=== PATIENT | male | born 1980 | race Two or more races ===

== ENCOUNTER 2025-01-14 20:32 | Inpatient (IN) | payer MEDICAID, SELFPAY ==
[2025-01-14 20:33] VITALS: BMI 50.8
[2025-01-14 20:41] VITALS: BP 149/97; PULSE 123; RESP 18; TEMP 36.8; O2SAT 97
--- NOTE | 2025-01-14 20:47 | EDNOTE_ITS ---
Nausea/Vomit./Diarrhea-RME/HPI General Chief complaint: Nausea/Vomiting/Diarrhea Stated complaint: VOMITING, INCREASE THRIST, BG 595 AT HOME Time Seen by Provider: 01/14/25 20:46 Arrival date/time: 01/14/25 20:32 RME / HPI RME / HPI Narrative: 44-year-old male patient with no significant medical history except for obesity, was brought in by family for evaluation regarding a blood sugar of 595 despite not having history of diabetes mellitus patient is been having increase thirst, urinating a lot, and vomiting since this morning. Denies any abdominal pain denies any headache denies any fever denies any other complaints. His is diabetic and check his blood sugar today. Related Data Previous Rx's ?Medication ?Instructions ?Recorded celecoxib 200 mg capsule (Celebrex) 200 mg PO BID PRN pain #60 caps 12/17/19 lisinopril 10 mg tablet 10 mg PO QDAY #30 tabs 10/19 acetaminophen 300 mg-codeine 30 mg 1 tab PO Q8H PRN pa in #12 tabs 11/24/21 tablet methocarbamol 500 mg tablet 500 mg PO TID #12 tabs benzonatate 200 mg capsule 200 mg PO TID PRN cough #30 caps 12/25/22 prednisone 50 mg tablet 50 mg PO QDAY #7 tabs Allergies Allergy/AdvReac Type Severity Reaction Status Date / Time No Known Allergies Allergy Verified 01/14/25 20:32 Review of Systems Review of Systems Narrative Review of Systems: Review of system reviewed and within normal limits except mentioned in HPI ED Exam Narrative Physical exam: VITAL SIGNS: Reviewed. GENERAL APPEARANCE: Alert and interactive, follows commands, no acute distress, HEAD AND FACE: Non-traumatic. ENT: PERRL, pink conjunctivitis, eyelid no trauma, Mucous membrane moist. NECK: Supple, nontender, no nuchal rigidity. CHEST: No tenderness, no crepitus, no paradoxical movement, no retractions. LUNGS: Clear, well ventilated, symmetric, no rales, no wheezing, no ronchi, no stridor, good breath sounds bilaterally. HEART: Regular rate, regular rhythm, no murmur, no gallops. ABDOMEN: Soft, positive bowel sounds, nondistended, no guarding, nontender, no rebound, no masses, RECTAL: Deferred. GENITAL: Deferred. NEUROLOGICAL: Gross motor function intact sensory function intact, Appropriate for age. MUSCULOSKELETAL: low back nontender, full range of motion. EXTREMITIES: Nontender, full range of motion. SKIN: Color pink, dry, no rash, no lacerations, no abrasions, no contusions. LYMPHATICS: Deferred. Course Quality Measures none Orders Category Date Time Status COVID-19 Screening Questionnaire NOW Care 01/14/25 22:54 Active Decision to Admit X1 Care 01/14/25 22:54 Active EKG (ED ONLY) *Do not use* NOW Care 01/14/25 20:52 Completed EKG (ED Only) Stat Exams 01/14/25 20:52 Draft Acetone [Beta Hydroxybutyrate] Stat Lab 01/14/25 21:50 Completed BMP [Basic Metabolic Panel] Stat Lab 01/14/25 22:53 Ordered CBC Stat Lab 01/14/25 21:50 Completed Comprehensive Metabolic Panel Stat Lab 01/14/25 21:50 Completed Hemoglobin A1C [Glycohemoglobin w (eAG)] Stat Lab 01/14/25 21:50 Completed Lactate (Lactic Acid) Stat Lab 01/14/25 22:52 Ordered Lipase Stat Lab 01/14/25 21:50 Completed Prothrombin Time with INR Stat Lab 01/14/25 21:50 Completed UA, C/S IF [Urinalysis, C/S if Indicated] Stat Lab 01/14/25 21:39 Completed VBG [Venous Blood Gas] Stat Lab 01/14/25 21:50 Completed Insulin Reg 100 Units/100 ml [Myxredlin] Med 01/14/25 22:45 Discontinued 100 unit in 100 ml IV 0.1 unit/kg/hr Insulin Regular Med 01/14/25 22:53 Once 10 unit IV X1 ONE Ondansetron Inj [Zofran Inj] Med 01/14/25 20:53 Discontinued 4 mg IVP X1 ONE Ringers Lactated 1000 ml [Lactated Ringers] 1,000 ml Med 01/14/25 20:53 Discontinued IV 999 mls/hr Ringers Lactated 1000 ml [Lactated Ringers] 1,000 ml Med 01/14/25 22:15 Active IV 999 mls/hr Vital Signs Vital signs: Vital Signs Temperature 98.2 F 01/14/25 20:41 Pulse Rate 123 H 01/14/25 20:41 Respiratory Rate 18 01/14/25 20:41 Blood Pressure 149/97 H 01/14/25 20:41 Pulse Oximetry (%) 97 01/14/25 20:41 Oxygen Delivery Method Room Air 01/14/25 20:41 Nausea/Vomiting/Diarrhea [facility] Narrative [facility] Narrative:: 44-year-old male patient with no significant medical history except for obesity, was brought in by family for evaluation regarding a blood sugar of 595 despite not having history of diabetes mellitus patient is been having increase thirst, urinating a lot, and vomiting since this morning. Denies any abdominal pain denies any headache denies any fever denies any other complaints. His is diabetic and check his blood sugar today. CBC came back unremarkable. Patient's CMP is significant for sodium 132, chloride 95, carbon dioxide less than 10 anion gap 27 blood sugar 466 hemoglobin A1c 9.1 slightly elevated AST, ALT and alkaline phos. Lipase is 70 urinalysis no UTI positive ketones. VBG came back unremarkable. pH normal EKG, as interpreted by me showed normal sinus rhythm, ventricular rate of 91 bpm, no ST segment elevation depression noted. Patient received 2 L IV fluids, IV insulin, and Zofran. Case discussed with Dr. Shaikh who told me to just give IV insulin for now and will admit patient to floor Patient data External records reviewed:: None Clinical information provided by:: patient Social determinants that could affect healthcare access:: none Patient has the following chronic illnesses:: None How is presenting disease/condition affected by chronic disease/condition?: no chronic disease Evaluation data The following diagnostics were reviewed and interpreted by me:: lab results and EKG tracing(s) Lab and/or radiology exams considered but not ordered:: None Interpretation Summary: See results [facility] Medications / Prescriptions Medications / Prescriptions considered but not ordered:: None Medication administrations:: Medication Administration History Lactated Ringer's (Lactated Ringers) 1,000 mls @ 999 mls/hr IV .Q1H1M ONE Stop: 01/14/25 23:15 Last Admin: 01/14/25 22:23 Dose: 999 mls/hr Documented By: PINOR Insulin Human Regular (Insulin Hum Regular 1 Unit/0.01 Ml (Per Unit)) 10 unit IV X1 ONE Stop: 01/14/25 22:54 Discontinued Medications Lactated Ringer's (Lactated Ringers) 1,000 mls @ 999 mls/hr IV .Q1H1M ONE Stop: 01/14/25 21:53 Last Infusion: 01/14/25 22:09 Dose: Infused Documented By: Admin: 01/14/25 21:08 Dose: 999 mls/hr Documented By: Infusion: 01/14/25 21:08 Dose: Infused Documented By: Admin: 01/14/25 21:02 Dose: 999 mls/hr Documented By: CG Insulin Human Regular (Myxredlin) 100 unit in 100 mls @ 14.288 mls/hr IV .Q7H PRN; Protocol PRN Reason: PER PROTOCOL Stop: 02/13/25 22:44 Ondansetron HCl (Ondansetron Inj 2 Mg/Ml Inj 2 Ml) 4 mg IVP X1 ONE; Protocol Stop: 01/14/25 20:54 Last Admin: 01/14/25 21:01 Dose: 4 mg Documented By: CG IV fluids 2 L, insulin IV, and Zofran Consultations Consultation(s) initiated? (list below): No Diagnosis Nausea Differential Diagnosis: food poisoning, dehydration and other (Hyperglycemia,) Most likely diagnosis given after review of the tests above:: Hyperglycemia dehydration, new diagnosis of diabetes mellitus Admission Indicated Admission indicated?: indicated Admission Request Was there a request for admission?: Yes Admission Attestation Admission request attestation: Discussed case with [Dr Shaikh] from Hospitalist service regarding admission. Discussed patients ED course, exam findings, labs, and radiology results. The Hospitalist [agrees] to accept the patient for admission. Disposition Plan Disposition Plan: Admit Discharge Plan Plan Patient Disposition: Admit Acute Care w/in Hospital Prescriptions/Referrals Prescriptions/Med Rec: No Action celecoxib [Celebrex] 200 mg capsule 200 mg PO BID PRN (Reason: pain) Qty: 60 0RF lisinopril 10 mg tablet 10 mg PO QDAY Qty: 30 0RF acetaminophen-codeine 300-30 mg tablet 1 tab PO Q8H PRN (Reason: pain) Qty: 12 0RF methocarbamol 500 mg tablet 500 mg PO TID Qty: 12 0RF benzonatate 200 mg capsule 200 mg PO TID PRN (Reason: cough) Qty: 30 0RF prednisone 50 mg tablet 50 mg PO QDAY Qty: 7 0RF Referrals: Alma Machuca PA-C [Primary Care Provider] - In 1 week Problem List Clinical Impression: Hyperglycemia, Dehydration, New onset type 2 diabetes mellitus Patient/Caregiver Discharge Instructions Print Language: Greenlandic Stand Alone Forms: Mirella Award Info., Patient Portal Info Letter
--- NOTE | 2025-01-14 20:52 | EKG_ITS ---
[facility] Test Date: 2025-01-14 Pat Name: AGUEDA HOOVER Department: Room: - Gender: Male [employer]: : 1980 Requested By: Sandra Russell Order Number: [id number] Reading MD: Sandra Russell Measurements Intervals Miles Rate: 91 P: 48 GA: 162 QRS: 56 QRSD: 87 T: 17 QT: 348 QTc: 429 Interpretive Statements SINUS RHYTHM No previous ECG available for comparison /store/S0/[id number]/ecg/[id number].pdf
[2025-01-14] MEDS: ONDANSETRON INJ 2 MG/ML INJ 2 ML 4 MG IVP (21:01)
[2025-01-14] MEDS: RINGERS LACTATED 1000 ML 1,000 ML 999 ML IV ×3 (21:02→22:23)
[2025-01-14 21:10] VITALS: BP 159/90; PULSE 100; RESP 20; TEMP 37.1; O2SAT 96
[2025-01-14 22:00] VITALS: BP 150/100; PULSE 95; RESP 17; TEMP 36.9; O2SAT 95
[2025-01-14 22:01] LABS: Collection Type, Urine Clean Catch; Squamous Epithelial Cell,Urine 0 /hpf (0-5)
[2025-01-14 22:03] LABS: Base Excess, Venous -2 (-3-3); O2 Saturation, Venous 90 % (96-97); PCO2, Venous 42 mmHg (36-56); PO2, Venous 58 mmHg (15-58); pH, Venous 7.36 (7.33-7.66)
[2025-01-14 22:10] LABS: Basophils # (Auto) 0.1 Thou/mm3 (0.0-0.2); Basophils % (Auto) 1 % (0-2.5); Eosinophils # (Auto) 0.1 Thou/mm3 (0.0-0.5); Eosinophils % (Auto) 1 % (0-10); Hematocrit 41.1 % (41.0-53.0); Hemoglobin 15.9 g/dL (13.5-16.0); Immature Granulocytes % (Auto) 1 % (0-0); Immature Granulocytes Auto 0.05 Thou/mm3 (0.00-0.00); Lymphocytes # (Auto) 4.3 Thou/mm3 (1.0-4.8); Lymphocytes % (Auto) 43 % (10-50); Mean Corpuscular HGB Conc 38.7 g/dl (31.0-37.0); Mean Corpuscular Hemoglobin 31.9 pg (25.0-35.0); Mean Corpuscular Volume 83 fL (80-100); Monocytes # (Auto) 0.6 Thou/mm3 (0.0-0.8); Monocytes % (Auto) 6 % (0-12); Neutrophils # (Auto) 4.8 Thou/mm3 (1.8-7.7); Neutrophils % (Auto) 48 % (37-80); Nucleated Red Blood Cell % 0 /100 WBC (0); Platelet Count 261 Thou/mm3 (140-440); RDW Standard Deviation 34.2 fL (35.1-43.9); Red Blood Count 4.98 Miln/mm3 (4.50-5.90); White Blood Count 9.8 Thou/mm3 (3.8-10.6)
[2025-01-14 22:14] LABS: Beta Hydroxybutyrate 0.8 mmol/L (<0.6)
[2025-01-14 22:20] LABS: INR 0.9 (0.9-1.3); Prothrombin Time 10.4 Seconds (9.0-12.2)
[2025-01-14 22:21] LABS: Bilirubin,Urine Negative (Negative); Blood,Urine Negative (Negative); Clarity,Urine Clear (Clear/Hazy); Color,Urine Colorless (Lt Yel-Yel); Culture Indicated,Urine Not Indicated; Glucose, Urine 4+ (Negative); Ketones,Urine 2+ (Negative); Leukocyte Esterase,Urine Negative (Negative); Nitrite,Urine Negative (Negative); PH,Urine 5.5 (5.0-7.0); Protein,Urine Negative (Neg - Trace); RBC,Urine 2 /hpf (0-3); Specific Gravity,Urine 1.036 (1.001-1.035); Urobilinogen,Urine Negative mg/dL (0.0-1.0); WBC,Urine 2 /hpf (0-5)
[2025-01-14 22:34] LABS: Glucose Estimated Average 214 mg/dL (80-131); Hemoglobin A1C 9.1 % Hgb (4.8-6.0)
[2025-01-14 22:40] LABS: Alanine Aminotransferase 74 U/L (10-49); Albumin, Serum 4.6 gm/dL (3.5-5.0); Albumin/Globulin Ratio 1.8 (1.2-2.2); Alkaline Phosphatase 117 U/L (46-116); Anion Gap 27 (7-16); Aspartate Amino Transferase 38 U/L (0-34); BUN/Creatinine Ratio 9 Ratio (12-20); Bilirubin,Total 0.5 mg/dL (0.3-1.2); Blood Urea Nitrogen 10 mg/dL (9-23); Calcium 9.6 mg/dL (8.3-10.6); Calcium (Corrected) 9.6 mg/dL (8.5-10.1); Chloride 95 mMol/L (98-107); Creatinine (Component) 1.1 mg/dL (0.6-1.3); Estimated Creatinine Clearance 118.1 mL/min (>60); Globulin 2.6 gm/dL (2.3-3.5); Lipase 70 U/L (12-53); Osmolality,Calculated 283 (275-295); Potassium 3.5 mMol/L (3.4-5.1); Sodium 132 mMol/L (136-145); Total Protein 7.2 gm/dL (5.7-8.2); eGFR > 60 See Note
[2025-01-14 22:42] LABS: Carbon Dioxide < 10.0 mMol/L (20.0-31.0); Glucose 466 mg/dL (74-106)
[2025-01-14 23:00] VITALS: BP 127/90; PULSE 99; RESP 12; TEMP 36.8; O2SAT 96
[2025-01-14 23:03] LABS: Lactate (Lactic Acid) 3.5 mMol/L (0.4-2.0)
[2025-01-14] MEDS: INSULIN HUM REGULAR 1 UNIT/0.01 ML (PER UNIT) 10 UNIT IV (23:24)
--- NOTE | 2025-01-14 23:57 | PD.RESHP ---
Documentation for date of: 01/14/25 [facility] History of Present Illness Chief complaint: N/V History of present illness: 44-year-old male with no relevant past medical history was admitted to the hospital on 01/14/2025 after come to the ED with chief complaints of nausea, vomiting, and high blood glucose levels. On assessment patient stated that around 2 days ago he started having increased urination and insatiable thirst and that today he started having a lot of nausea and vomiting. He also stated that his told him that he was not making sense of what he was seen today and she decided to check his blood glucose levels. Patient stated that his blood glucose was in the 500s at this time and that he had never had a diagnosis of diabetes before. He stated that he uses Ozempic for weight loss and was recently changed to Wegovy and is currently on 1 mg at this time. He stated that previous to this he had not been checked for diabetes and they just told him to check his blood glucose levels while on the medication where she stated that his blood glucose levels were normal every time. Otherwise patient had no other complaints. On assessment patient was AO x 3 and did not have any complaints of shortness of breath or chest pain. ED course: Initially came in hypertensive, tachycardic, and afebrile initial labs were relevant for high anion gap metabolic acidosis, hyperglycemia, A1c of 9.1, lactic acidosis, mildly elevated lipase, mildly elevated hydroxybutyrate, transaminitis, and UA was positive for ketones and glucose. Initial imaging included EKG which showed sinus rhythm. In the ED patient received 3 L of IV fluids, Zofran, and 10 units of regular insulin IV. PMH: As above Social Hx: Admits smoking around 3 cigarettes/week, admits drinking around 2 or 3 days a week, admitted to recently doing cocaine, denies any other illicit drugs Medications: Wegovy Allergies: NKDA Review of Systems Review of Systems Narrative Review of Systems: Constitutional: Denies sweats, Denies weight loss/gain, Denies fever, Denies chills, admits increased thirst. HEENT: Denies hearing loss, Denies ear pain, Denies postnasal drip, Denies double vision, Denies blurry vision. Respiratory: Denies shortness of breath, Denies cough, Denies wheezing. Cardiovascular: Denies chest pain, Denies palpitations, Denies sudden loss of consciousness. GI: Denies blood in stool, Denies constipation, Denies abdominal pain, Denies difficulty swallowing, Admits nausea and vomit. : Denies urinary incontinence, Denies pain while urinating, admits increased urinary frequency. MSK: Denies joint pain, Denies joint swelling, Denies numbness. Skin: Denies rash, Denies itching, Denies easy bruising. Neuro: Denies headaches, Denies dizziness, Denies seizures. Past Medical History Past Medical History NEUROLOGIC: Negative Neurological Disorders or Seizures CARDIAC: Negative Cardiac Disorders or Congestive Heart Failure RESPIRATORY: Negative Chronic Obstructive Pulmonary Disease (COPD) or Asthma GASTROINTESTINAL: Positive Gastrointestinal Disorders and Gall Bladder Disease (2018) GENITOURINARY: Negative Genitourinary Disorders or Renal Disease MUSCULOSKELETAL: Negative Musculoskeletal Disorders ENDOCRINE: Negative Endocrine Disorders, Diabetes Mellitus Type 1 or Diabetes Mellitus Type 2 HEMATOLOGIC: Negative Blood Disorders or Sickle Cell Disease OTHER HISTORY: Negative Autoimmune Disease, Blood Transfusions, Blood Transfusion Reaction or Anesthesia Reactions Family History FAMILY HISTORY: Positive Family Cardiac Disorders, Family Cancer and Family Surgery; Negative Family Psychiatric Problems, Family Respiratory Disorders, Family Gastrointestinal Problems or Family Anesthesia Reaction Social History SMOKING STATUS: Current some day smoker SUBSTANCE USE: does not use Exam Vital Signs Temp Pulse Resp BP Pulse Ox O2 Del Method 98.2 F 99 12 127/90 H 96 Room Air 01/14/25 23:00 01/14/25 23:00 01/14/25 23:00 01/14/25 23:00 01/14/25 23:00 01/14/25 23:00 Narrative Exam General: A/O x3, no acute distress Eyes: PERRL, EOMI. Anicteric, vision grossly intact. Ears: No ear pain, no ear discharge, Hearing grossly intact. Nose: No nasal discharge. Mouth/Throat: Moist mucous membranes, no redness, no lesions. Neck: Neck supple, non-tender, no cervical lymphadenopathy. Lungs: Clear YESIKA to auscultation and percussion, No accessory muscle use. Cardio: Normal S1/S2, regular rhythm, no murmurs, no JVD Abdomen: Soft, non-tender, no palpable masses, peristalsis present, no guarding or rebound. Extremities: Symmetrical, no significant deformities, no peripheral edema , non-tender, peripheral pulses presents. Skin: No rashes, no lesions, warm to touch. Neuro: No focal neurological deficits. motor and sensory intact Psych: Cooperative, appropriate mood and effect. Results: Labs 01/14/25 21:50 01/15/25 00:22 Labs: Short CBC 01/14/25 Range/Units 21:50 WBC 9.8 (3.8-10.6) Thou/mm3 Hgb 15.9 (13.5-16.0) g/dL Hct 41.1 (41.0-53.0) % Plt Count 261 (140-440) Thou/mm3 BMP 01/14/25 21:50 Sodium 132 L Potassium 3.5 Chloride 95 L Carbon Dioxide < 10.0 L* BUN 10 Creatinine 1.1 Glucose 466 H* Calcium 9.6 Liver Function 01/14/25 Range/Units 21:50 Total Bilirubin 0.5 (0.3-1.2) mg/dL AST 38 H (0-34) U/L ALT 74 H (10-49) U/L Alkaline Phosphatase 117 H (46-116) U/L Albumin 4.6 (3.5-5.0) gm/dL Urine 01/14/25 Range/Units 21:39 Urine Color Colorless A (Lt Yel-Yel) Urine Clarity Clear (Clear/Hazy) Urine pH 5.5 (5.0-7.0) Ur Specific Badin 1.036 H (1.001-1.035) Urine Protein Negative (Neg - Trace) Urine Glucose (UA) 4+ A (Negative) ABG Interpretation ABG results: 01/14/25 21:50 VBG pH 7.36 VBG pCO2 42 VBG pO2 58 VBG Base Excess -2 Quality Measures Quality Measures none Medications Home Medications and Allergies Home Medications ?Medication ?Instructions ?Recorded ?Confirmed ?Type No Known Home Medications 01/15/25 01/15/25 History Allergies Allergy/AdvReac Type Severity Reaction Status Date / Time No Known Allergies Allergy Verified 01/14/25 20:32 Visit Medications Acetaminophen (Acetaminophen 325 Mg Tablet) 650 mg PO Q6H PRN PRN Reason: pain and Fever >100.4 Stop: 02/13/25 23:43 Hydrocodone Bitart/Acetaminophen (Hydrocodone/Apap 5/325 Tablet) 1 tab PO Q4HR PRN PRN Reason: PAIN SCALE 4-10(Mod-Sev Stop: 01/19/25 23:43 Dextrose (Dextrose 50%-Water Inj 50 Ml Syringe) 25 ml IV Q15MIN PRN PRN Reason: BG 50-70 responsive npo pt Stop: 02/13/25 23:49 Dextrose (Dextrose 50%-Water Inj 50 Ml Syringe) 50 ml IV Q15MIN PRN PRN Reason: BG <50 OR BG <70 & pt unresponsive Stop: 02/13/25 23:49 Glucagon (Glucagon Inj 1 Mg Vial) 1 mg IM Q15MIN PRN PRN Reason: BG <70, and no IV access Heparin Sodium (Porcine) (Heparin Sod Inj 5000 Unit/Ml Vial) 5,000 unit SC Q8HR DAVID Stop: 01/29/25 05:59 Lactated Ringer's (Lactated Ringers) 1,000 mls @ 150 mls/hr IV .Q6H40M [facility] Stop: 01/15/25 13:04 Insulin Glargine (Insulin Glargine (Lantus) 5 Unit/0.05 Ml (Per 5 Units)) 14 unit SC [facility] Stop: 02/14/25 20:59 Insulin Human Lispro (Insulin Lispro (Admelog) 1 Unit/0.01 Ml Unit) 0 unit SC Q4H DAVID; Protocol Stop: 02/13/25 23:44 Ondansetron HCl (Ondansetron Inj 2 Mg/Ml Inj 2 Ml) 4 mg IVP Q6H PRN; Protocol PRN Reason: NAUSEA OR VOMITING Stop: 02/13/25 23:43 Discontinued Medications Lactated Ringer's (Lactated Ringers) 1,000 mls @ 999 mls/hr IV .Q1H1M ONE Stop: 01/14/25 21:53 Last Infusion: 01/14/25 22:09 Dose: Infused Lactated Ringer's (Lactated Ringers) 1,000 mls @ 999 mls/hr IV .Q1H1M ONE Stop: 01/14/25 23:15 Last Admin: 01/14/25 22:23 Dose: 999 mls/hr Insulin Human Regular (Myxredlin) 100 unit in 100 mls @ 14.288 mls/hr IV .Q7H PRN; Protocol PRN Reason: PER PROTOCOL Stop: 02/13/25 22:44 Insulin Human Regular (Insulin Hum Regular 1 Unit/0.01 Ml (Per Unit)) 10 unit IV X1 ONE Stop: 01/14/25 22:54 Last Admin: 01/14/25 23:24 Dose: 10 unit Ondansetron HCl (Ondansetron Inj 2 Mg/Ml Inj 2 Ml) 4 mg IVP X1 ONE; Protocol Stop: 01/14/25 20:54 Last Admin: 01/14/25 21:01 Dose: 4 mg Assessment & Plan Plan 44-year-old male with no relevant past medical history was admitted to the hospital on 01/14/2025 for new onset diabetes mellitus 2 and mild DKA. #Newly diagnosed DM2 #Mild DKA #High anion gap metabolic acidosis #Lactic acidosis #Hyperglycemia #Polydipsia #Polyuria #Intractable nausea and vomiting Patient came in after experiencing increased urination and thirst as well as developing nausea and vomiting today. Patient stated that he has never had a diagnosis of diabetes He was taking Wegovy and Ozempic previously for weight loss. Blood sugars at home supposedly were in the 500s. Patient's anion gap was 27 with carbon dioxide of less than 10 and beta hydroxybutyrate of 0.8. LA was 3.5 Patient received 10 units of regular insulin IV x 1 in the ED and 3 L of IV fluids A1c 9.1% Plan: IV fluids Insulin glargine 14 units at bedtime ISS every 4 hours with blood glucose checks every 4 hours Losartan 25 daily Hypoglycemia protocol ordered Repeat BMP and lactic acid ordered Lipid panel and TSH ordered for a.m. labs Carb consistent low diet. Will continue to monitor. Disposition: Patient admitted to telemetry for new onset DM2 and mild DKA. Diet: carb low GI prophylaxis: none DVT prophylaxis: heparin subcu Code: Full Case disclosed with Attending Dr. Hawa Elliott PGY1 Disclaimer: Even though this this note was dictated by speech recognition and even though it was carefully revised there may still be minor errors in food service associate due to voice recognition software. Attending Provider Attestation/Addendum I reviewed labs, imaging, EKG, home medications and prior available records. Face to face evaluation was performed by me. I have personally examined the patient and discussed assessment and plan with the IM team. I reviewed the resident note and agree with the plan with exceptions as below. New onset diabetes mellitus Borderline DKA Moderate obesity Nausea and vomiting Polyuria Polydipsia pH is WNL. Does not meet criteria for DKA however he has anion gap elevation Continue IV fluids Started long-acting insulin plus sliding scale insulin every 4 hours Monitor fingersticks every 4 hours Monitor potassium/magnesium levels and replete as needed Ordered A1c Diabetic education Outpatient weight management
[2025-01-15] VITALS (11 sets, daily range): BP systolic 137–171; BP diastolic 69–104; PULSE 69–93; RESP 14–98; TEMP 36.1–37; O2SAT 93–99; BMI 48.7
[2025-01-15 00:30] LABS: Lactate (Lactic Acid) 1.6 mMol/L (0.4-2.0)
[2025-01-15] MEDS: INSULIN LISPRO (AdmeLOG) 1 UNIT/0.01 ML UNIT SC ×8 (00:40→21:39)
[2025-01-15] MEDS: INSULIN GLARGINE (Lantus) 5 UNIT/0.05 ML (PER 5 UNITS) 14 UNIT SC (00:41)
[2025-01-15] MEDS: POTASSIUM CHLORIDE 20 mEq TABCR PO (00:42)
[2025-01-15] MEDS: RINGERS LACTATED 1000 ML 1,000 ML 150 ML IV ×2 (00:43→10:00)
[2025-01-15 00:55] LABS: Anion Gap 19 (7-16); BUN/Creatinine Ratio 10 Ratio (12-20); Blood Urea Nitrogen 8 mg/dL (9-23); Calcium 8.5 mg/dL (8.3-10.6); Carbon Dioxide 15.2 mMol/L (20.0-31.0); Chloride 102 mMol/L (98-107); Creatinine (Component) 0.8 mg/dL (0.6-1.3); Estimated Creatinine Clearance 162.4 mL/min (>60); Glucose 285 mg/dL (74-106); Osmolality,Calculated 280 (275-295); Potassium 3.5 mMol/L (3.4-5.1); Sodium 136 mMol/L (136-145); eGFR > 60 See Note
[2025-01-15 02:02] LABS: Reflex Lactate? Y
[2025-01-15 02:20] LABS: Lactic Acid, 3 HR 1.1 mMol/L (0.4-2.0)
--- NOTE | 2025-01-15 03:49 | PC.NURSE ---
Report called to floor nurse, FRANCISCO Alva
[2025-01-15] MEDS: HEPARIN SOD INJ 5000 UNIT/ML VIAL SC ×3 (05:46→21:41)
[2025-01-15 06:57] LABS: Basophils % (Auto) 1 % (0-2.5); Eosinophils # (Auto) 0.1 Thou/mm3 (0.0-0.5); Eosinophils % (Auto) 2 % (0-10); Hematocrit 37.3 % (41.0-53.0); Immature Granulocytes % (Auto) 0 % (0-0); Immature Granulocytes Auto 0.03 Thou/mm3 (0.00-0.00); Lymphocytes # (Auto) 3.8 Thou/mm3 (1.0-4.8); Lymphocytes % (Auto) 48 % (10-50); Mean Corpuscular HGB Conc 37.5 g/dl (31.0-37.0); Mean Corpuscular Hemoglobin 31.3 pg (25.0-35.0); Mean Corpuscular Volume 83 fL (80-100); Monocytes # (Auto) 0.6 Thou/mm3 (0.0-0.8); Monocytes % (Auto) 7 % (0-12); Neutrophils # (Auto) 3.3 Thou/mm3 (1.8-7.7); Neutrophils % (Auto) 42 % (37-80); Nucleated Red Blood Cell # 0.04 Thou/mm3 (0.00-0.00); Nucleated Red Blood Cell % 1 /100 WBC (0); Platelet Count 179 Thou/mm3 (140-440); RDW Standard Deviation 34.8 fL (35.1-43.9); Red Blood Count 4.47 Miln/mm3 (4.50-5.90); White Blood Count 7.8 Thou/mm3 (3.8-10.6)
[2025-01-15 07:18] LABS: Alanine Aminotransferase 54 U/L (10-49); Albumin, Serum 3.7 gm/dL (3.5-5.0); Albumin/Globulin Ratio 1.6 (1.2-2.2); Alkaline Phosphatase 91 U/L (46-116); Anion Gap 18 (7-16); Aspartate Amino Transferase 26 U/L (0-34); BUN/Creatinine Ratio 10 Ratio (12-20); Bilirubin,Total 0.6 mg/dL (0.3-1.2); Blood Urea Nitrogen 8 mg/dL (9-23); Calcium 8.6 mg/dL (8.3-10.6); Calcium (Corrected) 8.8 mg/dL (8.5-10.1); Cardiac Risk Estimate 9.3 RATIO (4.0-6.7); Chloride 101 mMol/L (98-107); Cholesterol 233 mg/dL (132-200); Creatinine (Component) 0.8 mg/dL (0.6-1.3); Estimated Creatinine Clearance 158.4 mL/min (>60); Globulin 2.3 gm/dL (2.3-3.5); Glucose 280 mg/dL (74-106); HDL Cholesterol 25 mg/dL (40-60); Magnesium 1.6 mg/dL (1.6-2.6); Osmolality,Calculated 283 (275-295); Potassium 3.4 mMol/L (3.4-5.1); Sodium 138 mMol/L (136-145); Thyroid Stimulating Hormone 2.02 uIU/mL (0.55-4.78); Triglycerides 1250 mg/dL (30-150); eGFR > 60 See Note
[2025-01-15] MEDS: POTASSIUM CHLORIDE 20 mEq TABCR 40 MEQ PO (07:28)
[2025-01-15] MEDS: Magnesium Sulfate 4 GM Ivpb 4 GM/50 ML BAG IV (07:28)
--- NOTE | 2025-01-15 07:31 | XR_ITS ---
Examination: Abdomen sonogram, Limited Date and time of exam: January 15, 2025 0940 hrs. Indications: New onset abdominal pain beginning 2 days ago clinical diagnosis pancreatitis Technique: Real-time canales scale transabdominal sonographic images of the upper abdomen obtained. Findings: Absent gallbladder Normal common bile duct 0.2 cm Pancreatic head is not enlarged 2.8 cm Liver 20.4 cm fatty infiltration no focal liver lesions Normal hepatopedal portal venous flow Patent IVC Impression: No common bile duct stones Pancreatic head is not enlarged. Moderate hepatomegaly fatty infiltration
[2025-01-15] MEDS: LOSARTAN POTASSIUM 25 MG TABLET PO (10:00)
--- NOTE | 2025-01-15 11:17 | PD.RESPRO ---
Documentation for date of: 01/15/25 Subjective Subjective Interval history: Patient examined at bedside. Has no major complaints, denies any nausea or vomiting episodes since admission. No abdominal pain. Blood sugar this morning 280. Increase glargine from 14 to 16 units at bedtime and uptitrate as needed. Anion gap metabolic acidosis slowly improving with gap now 18, bicarb 19. Patient was counseled on weight loss and sugar control outpatient. He will also be started on fenofibrate inpatient as he has severe hypertriglyceridemia 1250. Repeat CMP in the afternoon and follow-up with abdominal ultrasound to rule out possible signs of pancreatitis. Low suspicion as lipase only mildly elevated and abdominal exam benign. Replete electrolytes as needed. Exam Vital Signs Temp Pulse Resp BP Pulse Ox O2 Del Method 96.9 F 80 20 138/91 H 95 Room Air 01/15/25 08:00 01/15/25 10:00 01/15/25 08:00 01/15/25 10:00 01/15/25 08:00 01/15/25 08:00 Narrative Exam General: Middle age male, No acute distress, cooperative, obese HEENT: NCAT, No JVD noted. Mucosa dry. Pupils are equal and reactive to light bilaterally Cardiovascular: Normal S1 and S2. Regular rate and rhythm. Respiratory: Lungs are clear to auscultation bilaterally. No wheezing or crackles heard. Abdomen: Soft, nontender, not distended Skin: Warm to touch, dry, no rashes noted Musculoskeletal: No gross injuries. Able to move all 4 extremities. No pitting edema Neuro: Alert and oriented x3. No focal neuro deficits. Psych: Normal affect and mood Objective Labs 01/16/25 05:40 01/16/25 05:40 Labs: Laboratory Results - last 24 hr 01/14/25 01/14/25 01/15/25 21:39 21:50 00:22 WBC 9.8 RBC 4.98 Hgb 15.9 Hct 41.1 MCV 83 MCH 31.9 MCHC 38.7 H RDW Std Deviation 34.2 L Plt Count 261 Neut % (Auto) 48 Lymph % (Auto) 43 [place] % (Auto) 6 Eos % (Auto) 1 Baso % (Auto) 1 Neut # (Auto) 4.8 Lymph # (Auto) 4.3 [place] # (Auto) 0.6 Eos # (Auto) 0.1 Baso # (Auto) 0.1 Immature Gran # (Auto) 0.05 H Absolute Nucleated RBC 0.00 Immature Gran % 1 H Nucleated RBC % 0 PT 10.4 INR 0.9 VBG pH 7.36 VBG pCO2 42 VBG pO2 58 VBG O2 Sat ([place]) 90 L VBG Base Excess -2 Sodium 132 L 136 Potassium 3.5 3.5 Chloride 95 L 102 Carbon Dioxide < 10.0 L* 15.2 L Anion Gap 27 H 19 H BUN 10 8 L Creatinine 1.1 0.8 Estim Creat Clear Calc 118.1 162.4 eGFR > 60 > 60 BUN/Creatinine Ratio 9 L 10 L Glucose 466 H* [address] Glu mg/dL 214 H Hemoglobin A1c 9.1 H Calculated Osmolality 283 280 Lactic Acid 3.5 H 1.6 Calcium 9.6 8.5 Corrected Calcium 9.6 Magnesium Total Bilirubin 0.5 AST 38 H ALT 74 H Alkaline Phosphatase 117 H Total Protein 7.2 Albumin 4.6 Globulin 2.6 Albumin/Globulin Ratio 1.8 Triglycerides Cholesterol LDL Cholesterol, Calc HDL Cholesterol Cholesterol/HDL Ratio Lipase 70 H Beta-Hydroxybutyrate/Acetoacetate 0.8 H TSH Ur Collection Type Clean Catch Urine Color Colorless A Urine Clarity Clear Urine pH 5.5 Ur Specific [place] 1.036 H Urine Protein Negative Urine Glucose (UA) 4+ A Urine Ketones 2+ A Urine Blood Negative Urine Nitrite Negative Urine Bilirubin Negative Urine Urobilinogen (Auto) Negative Ur Leukocyte Esterase Negative Urine RBC 2 Urine WBC 2 Ur Squamous Epith Cells 0 Urine Bacteria None Ur Culture Indicated? Not Indicated 01/15/25 01/15/25 02:12 06:00 WBC 7.8 RBC 4.47 L Hgb 14.0 Hct 37.3 L MCV 83 MCH 31.3 MCHC 37.5 H RDW Std Deviation 34.8 L Plt Count 179 D Neut % (Auto) 42 Lymph % (Auto) 48 [place] % (Auto) 7 Eos % (Auto) 2 Baso % (Auto) 1 Neut # (Auto) 3.3 Lymph # (Auto) 3.8 [place] # (Auto) 0.6 Eos # (Auto) 0.1 Baso # (Auto) 0.0 Immature Gran # (Auto) 0.03 H Absolute Nucleated RBC 0.04 H Immature Gran % 0 Nucleated RBC % 1 H PT INR VBG pH VBG pCO2 VBG pO2 VBG O2 Sat ([place]) VBG Base Excess Sodium 138 Potassium 3.4 Chloride 101 Carbon Dioxide 19.0 L Anion Gap 18 H BUN 8 L Creatinine 0.8 Estim Creat Clear Calc 158.4 eGFR > 60 BUN/Creatinine Ratio 10 L Glucose [address] Glu mg/dL Hemoglobin A1c Calculated Osmolality 283 Lactic Acid 1.1 Calcium 8.6 Corrected Calcium 8.8 Magnesium 1.6 Total Bilirubin 0.6 AST 26 ALT 54 H Alkaline Phosphatase 91 D Total Protein 6.0 Albumin 3.7 D Globulin 2.3 Albumin/Globulin Ratio 1.6 Triglycerides 1250 H Cholesterol 233 H LDL Cholesterol, Calc TNP HDL Cholesterol 25 L Cholesterol/HDL Ratio 9.3 H Lipase Beta-Hydroxybutyrate/Acetoacetate TSH 2.02 Ur Collection Type Urine Color Urine Clarity Urine pH Ur Specific [place] Urine Protein Urine Glucose (UA) Urine Ketones Urine Blood Urine Nitrite Urine Bilirubin Urine Urobilinogen (Auto) Ur Leukocyte Esterase Urine RBC Urine WBC Ur Squamous Epith Cells Urine Bacteria Ur Culture Indicated? ABG Interpretation ABG results: 01/14/25 21:50 VBG pH 7.36 VBG pCO2 42 VBG pO2 58 VBG Base Excess -2 Quality Measures Quality Measures none Assessment & Plan Assessment Current Active Medications: Generic Name Dose Route Start Last Admin Trade Name Freq PRN Reason Stop Dose Admin Acetaminophen 650 mg 01/15/25 00:02 Acetaminophen 325 Mg Tablet PO 02/13/25 23:43 Q6H PRN pain 1-3 and Fever >100.4 Hydrocodone Bitart/Acetaminophen 1 tab 01/14/25 23:44 Hydrocodone/Apap 5/325 Tablet PO 01/19/25 23:43 Q4HR PRN PAIN SCALE 4-10(Mod-Sev Dextrose 25 ml 01/14/25 23:50 Dextrose 50%-Water Inj 50 Ml Syringe IV 02/13/25 23:49 Q15MIN PRN BG 50-70 responsive npo pt Dextrose 50 ml 01/14/25 23:50 Dextrose 50%-Water Inj 50 Ml Syringe IV 02/13/25 23:49 Q15MIN PRN BG <50 OR BG <70 & pt unresponsive Fenofibrate 72.5 mg 01/15/25 10:00 Fenofibrate 145 Mg Tablet (Non-Formulary) PO 02/14/25 09:59 QDAY DAVID Glucagon 1 mg 01/14/25 23:50 Glucagon Inj 1 Mg Vial IM Q15MIN PRN BG <70, and no IV access Heparin Sodium (Porcine) 5,000 unit 01/15/25 06:00 01/15/25 05:46 Heparin Sod Inj 5000 Unit/Ml Vial SC 01/29/25 05:59 5,000 unit Q8HR DAVID Administration Lactated Ringer's 1,000 mls @ 150 mls/hr 01/14/25 23:45 01/15/25 10:00 Lactated Ringers IV 01/15/25 13:04 150 mls/hr .Q6H40M DAVID Administration Magnesium Sulfate 4 gm in 50 mls @ 12.5 mls/hr 01/15/25 07:22 01/15/25 07:28 Magnesium Sulfate Ivpb IV 01/15/25 11:21 12.5 mls/hr X1 ONE Administration Insulin Glargine 16 unit 01/15/25 21:00 Insulin Glargine (Lantus) 5 Unit/0.05 Ml (Per 5 Units) SC 02/14/25 20:59 HS DAVID Insulin Human Lispro 0 unit 01/14/25 23:45 01/15/25 07:30 Insulin Lispro (Admelog) 1 Unit/0.01 Ml Unit SC 02/13/25 23:44 4 unit Q4H DAVID Administration Protocol Losartan Potassium 25 mg 01/15/25 09:00 01/15/25 10:00 Losartan Potassium 25 Mg Tablet PO 02/14/25 08:59 25 mg QDAY DAVID Administration Ondansetron HCl 4 mg 01/14/25 23:44 Ondansetron Inj 2 Mg/Ml Inj 2 Ml IVP 02/13/25 23:43 Q6H PRN NAUSEA OR VOMITING Protocol Plan 44-year-old male with history of obesity on Wegovy was admitted to the hospital on 01/14/2025 for new onset diabetes mellitus 2 and mild DKA. #Intractable nausea and vomiting-resolved #Polydipsia #Polyuria 2/2 new onset type 2 DM #High anion gap metabolic acidosis #Hyperglycemia Metabolic acidosis most likely in setting of DKA. Patient came in after experiencing increased urination and thirst, n/v. Denies any previous diagnosis of diabetes. Stated that he was started on Wegovy and Ozempic by his PCP. Initially was on Ozempic which was not tolerable. Transition to Wegovy was also not tolerable. He was on metformin for short time due to higher blood sugar reads but was never worked up for diabetes. Blood sugars at home were in the 500s. Anion gap on admission 27, bicarb less than 10, beta hydroxybutyrate of 0.8. LA was 3.5 Patient received 10 units of regular insulin IV x 1 in the ED and 3 L of IV fluids A1c 9.1% -IV fluids -Insulin glargine 16 units at bedtime -ISS every 4 hours with blood glucose checks every 4 hours -Hypoglycemia protocol ordered -repeat CMP in afternoon and night -Carb consistent low diet. -diabetic education #Mixed hyperlipidemia TAG 1250, cholesterol 233. No abdominal pain, lipase 70. Rule out pancreatitis, this is likely due to his obesity and diabetes. -start fenofibrate 48mg daily -abdominal u/s pending -follow up outpatient #Hypertension Denies being on any antihypertensive agents in the past. This should also be followed up outpatient for urine ablumin-cr ratio. Patient would benefit from MEMO inhibitor for renal protection if elevated ratio. -Will start him on losartan 25 mg daily ? Follow-up outpatient #Class III obesity (BMI >40) Patient will be possibly undergoing bariatric surgery. ?Counseled patient on diet and exercise #Lactic acidosis-resolved Disposition: telemetry for new onset DM2 and mild DKA. Diet: carb low GI prophylaxis: none DVT prophylaxis: heparin subcu Code: Full The patient's management plan was discussed with my attending physician Dr. Whelan. Beth Wilson, PGY-1 Attending Provider Attestation/Addendum I have examined the patient, reviewed labs and imaging findings, discussed the case with the resident(s), and reviewed entered orders. I agree with the plan of care as outlined in this note, with these additional summaries/recommendations: Patient seen at bedside. He currently denies nausea and vomiting. He denies abdominal pain. Patient was noted to have elevated lipase on admission and ultrasound obtained which was negative for acute pancreatitis. Patient has significantly elevated triglycerides and we will start fenofibrate. Patient also diagnosed with DKA/HHS which is mild. Anion gap continues to improve and pH within normal limits. We will continue basal and bolus insulin plus IV fluids. Patient received a new diagnosis of diabetes mellitus type 2. A1c 9.1%. Diabetic education. Target blood sugar of 140-180 while hospitalized. Patient counseled on insulin resistance and weight loss. He did not tolerate Ozempic or Wegovy and is being evaluated for outpatient gastric band. Continue to trend CMP until DKA is resolved. Patient updated on the plan and in agreement. All questions answered to satisfaction. Please see residents note for additional details of management. Dr. Tip MD
[2025-01-15] MEDS: FENOFIBRATE 145 MG TABLET (NON-FORMULARY) 72.5 MG PO (11:35)
[2025-01-15 13:56] LABS: Alanine Aminotransferase 65 U/L (10-49); Albumin, Serum 3.9 gm/dL (3.5-5.0); Albumin/Globulin Ratio 1.6 (1.2-2.2); Alkaline Phosphatase 98 U/L (46-116); Anion Gap 15 (7-16); Aspartate Amino Transferase 43 U/L (0-34); BUN/Creatinine Ratio 11 Ratio (12-20); Bilirubin,Total 0.5 mg/dL (0.3-1.2); Blood Urea Nitrogen 10 mg/dL (9-23); Calcium 8.3 mg/dL (8.3-10.6); Calcium (Corrected) 8.4 mg/dL (8.5-10.1); Carbon Dioxide 19.1 mMol/L (20.0-31.0); Chloride 100 mMol/L (98-107); Creatinine (Component) 0.9 mg/dL (0.6-1.3); Estimated Creatinine Clearance 140.8 mL/min (>60); Globulin 2.5 gm/dL (2.3-3.5); Glucose 322 mg/dL (74-106); Osmolality,Calculated 279 (275-295); Potassium 3.9 mMol/L (3.4-5.1); Sodium 134 mMol/L (136-145); Total Protein 6.4 gm/dL (5.7-8.2); eGFR > 60 See Note
--- NOTE | 2025-01-15 15:38 | PC.SS ---
Rounding note: Electrolytes being monitored, labs pending.
[2025-01-15] MEDS: INSULIN LISPRO (AdmeLOG) 1 UNIT/0.01 ML UNIT 10 UNIT SC (16:24)
[2025-01-15 19:43] LABS: Alanine Aminotransferase 68 U/L (10-49); Albumin, Serum 3.9 gm/dL (3.5-5.0); Anion Gap 12 (7-16); Aspartate Amino Transferase 42 U/L (0-34); BUN/Creatinine Ratio 10 Ratio (12-20); Bilirubin,Total 0.5 mg/dL (0.3-1.2); Blood Urea Nitrogen 8 mg/dL (9-23); Calcium 8.8 mg/dL (8.3-10.6); Calcium (Corrected) 8.9 mg/dL (8.5-10.1); Carbon Dioxide 23.3 mMol/L (20.0-31.0); Chloride 98 mMol/L (98-107); Creatinine (Component) 0.8 mg/dL (0.6-1.3); Estimated Creatinine Clearance 158.4 mL/min (>60); Glucose 252 mg/dL (74-106); Osmolality,Calculated 273 (275-295); Potassium 3.7 mMol/L (3.4-5.1); Sodium 133 mMol/L (136-145); Total Protein 6.1 gm/dL (5.7-8.2); eGFR > 60 See Note
[2025-01-15 19:44] LABS: Albumin/Globulin Ratio 1.8 (1.2-2.2); Alkaline Phosphatase 92 U/L (46-116); Globulin 2.2 gm/dL (2.3-3.5)
[2025-01-15] MEDS: INSULIN GLARGINE (Lantus) 5 UNIT/0.05 ML (PER 5 UNITS) 16 UNIT SC (21:40)
[2025-01-16] VITALS (9 sets, daily range): BP systolic 117–135; BP diastolic 72–82; PULSE 68–86; RESP 16–99; TEMP 36.1–36.2; O2SAT 94–97; BMI 49.1; BMI 48.9
[2025-01-16] MEDS: INSULIN LISPRO (AdmeLOG) 1 UNIT/0.01 ML UNIT SC ×6 (01:57→21:39)
[2025-01-16] MEDS: HEPARIN SOD INJ 5000 UNIT/ML VIAL SC ×3 (05:51→21:38)
[2025-01-16 06:10] LABS: Basophils % (Auto) 1 % (0-2.5); Eosinophils # (Auto) 0.2 Thou/mm3 (0.0-0.5); Eosinophils % (Auto) 3 % (0-10); Hematocrit 40.3 % (41.0-53.0); Hemoglobin 15.1 g/dL (13.5-16.0); Immature Granulocytes % (Auto) 0 % (0-0); Immature Granulocytes Auto 0.03 Thou/mm3 (0.00-0.00); Lymphocytes # (Auto) 3.5 Thou/mm3 (1.0-4.8); Lymphocytes % (Auto) 52 % (10-50); Mean Corpuscular HGB Conc 37.5 g/dl (31.0-37.0); Mean Corpuscular Hemoglobin 31.8 pg (25.0-35.0); Mean Corpuscular Volume 85 fL (80-100); Monocytes # (Auto) 0.4 Thou/mm3 (0.0-0.8); Monocytes % (Auto) 5 % (0-12); Neutrophils # (Auto) 2.7 Thou/mm3 (1.8-7.7); Neutrophils % (Auto) 40 % (37-80); Nucleated Red Blood Cell % 0 /100 WBC (0); Platelet Count 205 Thou/mm3 (140-440); RDW Standard Deviation 35.1 fL (35.1-43.9); Red Blood Count 4.75 Miln/mm3 (4.50-5.90); White Blood Count 6.7 Thou/mm3 (3.8-10.6)
[2025-01-16 06:26] LABS: Alanine Aminotransferase 67 U/L (10-49); Albumin, Serum 3.8 gm/dL (3.5-5.0); Albumin/Globulin Ratio 1.5 (1.2-2.2); Alkaline Phosphatase 93 U/L (46-116); Anion Gap 14 (7-16); Aspartate Amino Transferase 37 U/L (0-34); BUN/Creatinine Ratio 9 Ratio (12-20); Bilirubin,Total 0.5 mg/dL (0.3-1.2); Blood Urea Nitrogen 6 mg/dL (9-23); Calcium 8.4 mg/dL (8.3-10.6); Calcium (Corrected) 8.6 mg/dL (8.5-10.1); Carbon Dioxide 19.7 mMol/L (20.0-31.0); Chloride 102 mMol/L (98-107); Creatinine (Component) 0.7 mg/dL (0.6-1.3); Globulin 2.5 gm/dL (2.3-3.5); Glucose 267 mg/dL (74-106); Osmolality,Calculated 278 (275-295); Potassium 3.9 mMol/L (3.4-5.1); Sodium 136 mMol/L (136-145); Total Protein 6.3 gm/dL (5.7-8.2); eGFR > 60 See Note
[2025-01-16] MEDS: INSULIN LISPRO (AdmeLOG) 1 UNIT/0.01 ML UNIT 3 UNIT SC ×2 (07:47→11:25)
[2025-01-16] MEDS: LOSARTAN POTASSIUM 25 MG TABLET PO (09:11)
[2025-01-16] MEDS: SODIUM CHLORIDE 0.9% 1000 ML 1,000 ML 100 ML IV (09:11)
[2025-01-16] MEDS: FENOFIBRATE 145 MG TABLET (NON-FORMULARY) 72.5 MG PO (09:11)
--- NOTE | 2025-01-16 09:46 | PC.SS ---
Patient Leander Driver is a 44-year-old male admitted for New onset DME. Mild DKA. SS conducted bedside contact with the patient to conduct initial assessment and to discuss discharge planning. Patient confirmed demographic information. Patient's surrogate decision maker is, life partner, Aparna Roberson, [phone].. Patient reports he lives at home with her. Pt states he is able to complete all ADL?s independently, Patient reports he does not utilize any source of DME to assist with ambulation. Patient's PCP is Alma Machuca. Choice of pharmacy is [facility]. At time of discharge family will provide transportation. Discharge plan: Home Next of Kin, Trang Dubosemond [phone]
--- NOTE | 2025-01-16 11:28 | PC.SS ---
SS follow up note; Blood glucose being monitored. Patient will discharge home once medically cleared.
--- NOTE | 2025-01-16 13:34 | ESPR_ITS ---
Documentation for date of: 01/16/25 Subjective Subjective Interval history: Patient examined at bedside. Has no major complaints, denies any nausea or vomiting episodes since admission. No abdominal pain. Blood sugar this morning 268. Increase glargine from to 22 units at bedtime, scheduled lispro 5 units, and uptitrate as needed. Anion gap metabolic acidosis slowly improving with bicarb 19, AG 14. Abdominal u/s was negative for acute pancreatitis. Patient was counseled on weight loss and sugar control outpatient. Diabetic education to be provided during stay. Continue fenofibrate and losartan. Anticipate dc next 24hrs. Exam Vital Signs Temp Pulse Resp BP Pulse Ox O2 Del Method 97.0 F 74 19 129/73 94 L Room Air 01/16/25 08:00 01/16/25 09:11 01/16/25 08:00 01/16/25 09:11 01/16/25 08:00 01/16/25 08:00 Narrative Exam General: Middle age male, No acute distress, cooperative, obese HEENT: NCAT, No JVD noted. Mucosa dry. Pupils are equal and reactive to light bilaterally Cardiovascular: Normal S1 and S2. Regular rate and rhythm. Respiratory: Lungs are clear to auscultation bilaterally. No wheezing or crackles heard. Abdomen: Soft, nontender, not distended Skin: Warm to touch, dry, no rashes noted Musculoskeletal: No gross injuries. Able to move all 4 extremities. No pitting edema Neuro: Alert and oriented x3. No focal neuro deficits. Psych: Normal affect and mood Objective Labs 01/16/25 05:40 01/16/25 05:40 Labs: Laboratory Results - last 24 hr 01/15/25 01/15/25 01/16/25 13:27 19:18 05:40 WBC 6.7 RBC 4.75 Hgb 15.1 Hct 40.3 L MCV 85 MCH 31.8 MCHC 37.5 H RDW Std Deviation 35.1 Plt Count 205 Neut % (Auto) 40 Lymph % (Auto) 52 H [place] % (Auto) 5 Eos % (Auto) 3 Baso % (Auto) 1 Neut # (Auto) 2.7 Lymph # (Auto) 3.5 [place] # (Auto) 0.4 Eos # (Auto) 0.2 Baso # (Auto) 0.0 Immature Gran # (Auto) 0.03 H Absolute Nucleated RBC 0.00 Immature Gran % 0 Nucleated RBC % 0 Sodium 134 L 133 L 136 Potassium 3.9 D 3.7 3.9 Chloride 100 98 102 Carbon Dioxide 19.1 L 23.3 19.7 L Anion Gap 15 12 14 BUN 10 8 L 6 L Creatinine 0.9 0.8 0.7 Estim Creat Clear Calc 140.8 158.4 181.0 eGFR > 60 > 60 > 60 BUN/Creatinine Ratio 11 L 10 L 9 L Glucose 322 H 252 H D 267 H Calculated Osmolality 279 273 L 278 Calcium 8.3 8.8 8.4 Corrected Calcium 8.4 L 8.9 8.6 Magnesium 2.0 Total Bilirubin 0.5 0.5 0.5 AST 43 H 42 H 37 H ALT 65 H 68 H 67 H Alkaline Phosphatase 98 92 93 Total Protein 6.4 6.1 6.3 Albumin 3.9 3.9 3.8 Globulin 2.5 2.2 L 2.5 Albumin/Globulin Ratio 1.6 1.8 1.5 ABG Interpretation ABG results: 01/14/25 21:50 VBG pH 7.36 VBG pCO2 42 VBG pO2 58 VBG Base Excess -2 Quality Measures Quality Measures none Assessment & Plan Assessment Current Active Medications: Generic Name Dose Route Start Last Admin Trade Name Freq PRN Reason Stop Dose Admin Acetaminophen 650 mg 01/15/25 00:02 Acetaminophen 325 Mg Tablet PO 02/13/25 23:43 Q6H PRN pain 1-3 and Fever >100.4 Hydrocodone Bitart/Acetaminophen 1 tab 01/14/25 23:44 Hydrocodone/Apap 5/325 Tablet PO 01/19/25 23:43 Q4HR PRN PAIN SCALE 4-10(Mod-Sev Dextrose 25 ml 01/14/25 23:50 Dextrose 50%-Water Inj 50 Ml Syringe IV 02/13/25 23:49 Q15MIN PRN BG 50-70 responsive npo pt Dextrose 50 ml 01/14/25 23:50 Dextrose 50%-Water Inj 50 Ml Syringe IV 02/13/25 23:49 Q15MIN PRN BG <50 OR BG <70 & pt unresponsive Fenofibrate 72.5 mg 01/15/25 10:00 01/16/25 09:11 Fenofibrate 145 Mg Tablet (Non-Formulary) PO 02/14/25 09:59 72.5 mg QDAY DAVID Administration Glucagon 1 mg 01/14/25 23:50 Glucagon Inj 1 Mg Vial IM Q15MIN PRN BG <70, and no IV access Heparin Sodium (Porcine) 5,000 unit 01/15/25 06:00 01/16/25 05:51 Heparin Sod Inj 5000 Unit/Ml Vial SC 01/29/25 05:59 5,000 unit Q8HR DAVID Administration Sodium Chloride 1,000 mls @ 100 mls/hr 01/16/25 08:01 01/16/25 09:11 Ns IV 01/16/25 18:00 100 mls/hr .Q10H ONE Administration Insulin Glargine 22 unit 01/16/25 21:00 Insulin Glargine (Lantus) 5 Unit/0.05 Ml (Per 5 Units) SC 02/15/25 20:59 HS DAVID Insulin Human Lispro 3 unit 01/16/25 07:30 01/16/25 11:25 Insulin Lispro (Admelog) 1 Unit/0.01 Ml Unit SC 02/15/25 07:29 3 unit ACHS DAVID Administration Insulin Human Lispro 0 unit 01/16/25 07:45 01/16/25 11:27 Insulin Lispro (Admelog) 1 Unit/0.01 Ml Unit SC 02/15/25 07:44 4 unit ACHS DAVID Administration Protocol Losartan Potassium 25 mg 01/15/25 09:00 01/16/25 09:11 Losartan Potassium 25 Mg Tablet PO 02/14/25 08:59 25 mg QDAY DAVID Administration Ondansetron HCl 4 mg 01/14/25 23:44 Ondansetron Inj 2 Mg/Ml Inj 2 Ml IVP 02/13/25 23:43 Q6H PRN NAUSEA OR VOMITING Protocol Plan 44-year-old male with history of obesity on Wegovy was admitted to the hospital on 01/14/2025 for new onset diabetes mellitus 2 and mild DKA. #Polydipsia #Polyuria 2/2 new onset type 2 DM #High anion gap metabolic acidosis #Hyperglycemia Metabolic acidosis most likely in setting of DKA. Patient came in after experiencing increased urination and thirst, n/v. Denies any previous diagnosis of diabetes. Stated that he was started on Wegovy and Ozempic by his PCP. Initially was on Ozempic which was not tolerable. Transition to Wegovy was also not tolerable. He was on metformin for short time due to higher blood sugar reads but was never worked up for diabetes. Blood sugars at home were in the 500s. Anion gap on admission 27, bicarb less than 10, beta hydroxybutyrate of 0.8. LA was 3.5 Patient received 10 units of regular insulin IV x 1 in the ED and 3 L of IV fluids A1c 9.1% -IV fluids -Insulin glargine 22 units at bedtime -scheduled lispro 5units ACHS -ISS every 4 hours with blood glucose checks every 4 hours -Hypoglycemia protocol ordered -Carb consistent low diet -diabetic education #Mixed hyperlipidemia TAG 1250, cholesterol 233. No abdominal pain, lipase 70. Rule out pancreatitis, this is likely due to his obesity and diabetes. -fenofibrate 48mg daily -abdominal u/s negative for pancreatitis -follow up outpatient #Hypertension Denies being on any antihypertensive agents in the past. This should also be followed up outpatient for urine ablumin-cr ratio. Patient would benefit from MEMO inhibitor for renal protection if elevated ratio. -losartan 25 mg daily ? Follow-up outpatient #Class III obesity (BMI >40) Patient will be possibly undergoing bariatric surgery. ?Counseled patient on diet and exercise #Lactic acidosis-resolved #Intractable nausea and vomiting-resolved Disposition: telemetry for new onset DM2 and mild DKA. Diet: carb low GI prophylaxis: none DVT prophylaxis: heparin subcu Code: Full The patient's management plan was discussed with my attending physician Dr. Whelan. Beth Wilson, PGY-1 Attending Provider Attestation/Addendum I have examined the patient, reviewed labs and imaging findings, discussed the case with the resident(s), and reviewed entered orders. I agree with the plan of care as outlined in this note, with these additional summaries/recommendations: Patient seen at bedside. No acute overnight events. Patient was noted to have elevated lipase on admission and ultrasound obtained which was negative for acute pancreatitis. Patient has significantly elevated triglycerides and we will continue fenofibrate. Recheck triglyceride level in am. Patient also diagnosed with DKA/HHS which is resolving. Anion gap originally closed X 2 although AG 14 this morning We will continue basal and bolus insulin plus IV fluids. Patient received a new diagnosis of diabetes mellitus type 2. A1c 9.1%. Diabetic education. Target blood sugar of 140-180 while hospitalized. Patient counseled on insulin resistance and weight loss. He did not tolerate Ozempic or Wegovy and is being evaluated for outpatient gastric band. Patient updated on the plan and in agreement. All questions answered to satisfaction. Anticipate discharge in the next 24 to 48 hours. Please see residents note for additional details of management. Dr. Tip MD
--- NOTE | 2025-01-16 16:47 | PC.NURSE ---
DR. CALI TO ASSESS PATIENT'S BS AT 1700, CALL REPORT RESULTS AND NEW ORDERS FOR INSULIN TO BE ORDER THEN.
[2025-01-16] MEDS: INSULIN LISPRO (AdmeLOG) 1 UNIT/0.01 ML UNIT 5 UNIT SC ×2 (17:21→21:39)
[2025-01-16] MEDS: INSULIN GLARGINE (Lantus) 5 UNIT/0.05 ML (PER 5 UNITS) 22 UNIT SC (21:38)
[2025-01-17] VITALS (9 sets, daily range): BP systolic 114–139; BP diastolic 58–82; PULSE 66–110; RESP 17–96; TEMP 36.1–36.9; O2SAT 94–100; BMI 48.9
[2025-01-17] MEDS: MELATONIN 3 MG TABLET PO ×2 (02:42→23:48)
[2025-01-17] MEDS: HEPARIN SOD INJ 5000 UNIT/ML VIAL SC ×3 (05:08→21:03)
[2025-01-17 05:24] LABS: Basophils % (Auto) 0 % (0-2.5); Eosinophils # (Auto) 0.2 Thou/mm3 (0.0-0.5); Eosinophils % (Auto) 2 % (0-10); Hematocrit 39.8 % (41.0-53.0); Hemoglobin 14.8 g/dL (13.5-16.0); Immature Granulocytes % (Auto) 1 % (0-0); Immature Granulocytes Auto 0.06 Thou/mm3 (0.00-0.00); Lymphocytes # (Auto) 3.3 Thou/mm3 (1.0-4.8); Lymphocytes % (Auto) 47 % (10-50); Mean Corpuscular HGB Conc 37.2 g/dl (31.0-37.0); Mean Corpuscular Hemoglobin 31.4 pg (25.0-35.0); Mean Corpuscular Volume 85 fL (80-100); Monocytes # (Auto) 0.4 Thou/mm3 (0.0-0.8); Monocytes % (Auto) 6 % (0-12); Neutrophils % (Auto) 43 % (37-80); Nucleated Red Blood Cell % 0 /100 WBC (0); Platelet Count 220 Thou/mm3 (140-440); RDW Standard Deviation 35.4 fL (35.1-43.9); Red Blood Count 4.71 Miln/mm3 (4.50-5.90); White Blood Count 6.9 Thou/mm3 (3.8-10.6)
[2025-01-17 05:56] LABS: Alanine Aminotransferase 87 U/L (10-49); Albumin, Serum 3.9 gm/dL (3.5-5.0); Albumin/Globulin Ratio 1.6 (1.2-2.2); Alkaline Phosphatase 90 U/L (46-116); Anion Gap 10 (7-16); Aspartate Amino Transferase 57 U/L (0-34); BUN/Creatinine Ratio 9 Ratio (12-20); Bilirubin,Total 0.5 mg/dL (0.3-1.2); Blood Urea Nitrogen 7 mg/dL (9-23); Calcium 8.6 mg/dL (8.3-10.6); Calcium (Corrected) 8.7 mg/dL (8.5-10.1); Carbon Dioxide 24.6 mMol/L (20.0-31.0); Chloride 103 mMol/L (98-107); Creatinine (Component) 0.8 mg/dL (0.6-1.3); Globulin 2.4 gm/dL (2.3-3.5); Glucose 254 mg/dL (74-106); Magnesium 2.1 mg/dL (1.6-2.6); Osmolality,Calculated 282 (275-295); Potassium 3.7 mMol/L (3.4-5.1); Sodium 138 mMol/L (136-145); Total Protein 6.3 gm/dL (5.7-8.2); Triglycerides 985 mg/dL (30-150); eGFR > 60 See Note
[2025-01-17] MEDS: INSULIN LISPRO (AdmeLOG) 1 UNIT/0.01 ML UNIT SC ×4 (08:20→20:48)
[2025-01-17] MEDS: INSULIN GLARGINE (Lantus) 5 UNIT/0.05 ML (PER 5 UNITS) SC (08:21)
[2025-01-17] MEDS: INSULIN LISPRO (AdmeLOG) 1 UNIT/0.01 ML UNIT 8 UNIT SC ×4 (08:21→20:48)
[2025-01-17] MEDS: LOSARTAN POTASSIUM 25 MG TABLET PO (08:22)
[2025-01-17] MEDS: FENOFIBRATE 145 MG TABLET (NON-FORMULARY) 72.5 MG PO (08:22)
--- NOTE | 2025-01-17 10:17 | PC.SS ---
SS follow up note; Glucose being monitored, liver panels also being monitored. Patient will discharge back home when medically cleared.
--- NOTE | 2025-01-17 13:54 | ESPR_ITS ---
Documentation for date of: 01/17/25 Subjective Subjective Interval history: Patient examined at bedside. No events overnight. Has no major complaints. Vitals are stable. CBC unremarkable, anion gap metabolic acidosis resolved. Still mild transaminitis but abdominal exam benign and ultrasound negative for any acute pancreatitis signs. Continue to uptitrate insulin as morning glucose still above 250. Increase glargine to 30 units at bedtime and schedule lispro 8 units with sliding scale. Repeat triglycerides show improvement with downtrended to 900s. Continue fenofibrate 72.5 mg daily. Repeat triglyceride labs a.m. and monitor LFTs. Exam Vital Signs Temp Pulse Resp BP Pulse Ox O2 Del Method 97.5 F 76 19 129/68 95 Room Air 01/17/25 12:00 01/17/25 12:00 01/17/25 12:00 01/17/25 12:00 01/17/25 12:00 01/17/25 12:00 Narrative Exam General: Middle age male, No acute distress, cooperative, obese HEENT: NCAT, No JVD noted. Mucosa dry. Pupils are equal and reactive to light bilaterally Cardiovascular: Normal S1 and S2. Regular rate and rhythm. Respiratory: Lungs are clear to auscultation bilaterally. No wheezing or crackles heard. Abdomen: Soft, nontender, not distended Skin: Warm to touch, dry, no rashes noted Musculoskeletal: No gross injuries. Able to move all 4 extremities. No pitting edema Neuro: Alert and oriented x3. No focal neuro deficits. Psych: Normal affect and mood Objective Labs 01/17/25 04:25 01/17/25 04:25 Labs: Laboratory Results - last 24 hr 01/17/25 04:25 WBC 6.9 RBC 4.71 Hgb 14.8 Hct 39.8 L MCV 85 MCH 31.4 MCHC 37.2 H RDW Std Deviation 35.4 Plt Count 220 Neut % (Auto) 43 Lymph % (Auto) 47 [place] % (Auto) 6 Eos % (Auto) 2 Baso % (Auto) 0 Neut # (Auto) 3.0 Lymph # (Auto) 3.3 [place] # (Auto) 0.4 Eos # (Auto) 0.2 Baso # (Auto) 0.0 Immature Gran # (Auto) 0.06 H Absolute Nucleated RBC 0.00 Immature Gran % 1 H Nucleated RBC % 0 Sodium 138 Potassium 3.7 Chloride 103 Carbon Dioxide 24.6 Anion Gap 10 BUN 7 L Creatinine 0.8 Estim Creat Clear Calc 159.0 eGFR > 60 BUN/Creatinine Ratio 9 L Glucose 254 H Calculated Osmolality 282 Calcium 8.6 Corrected Calcium 8.7 Magnesium 2.1 Total Bilirubin 0.5 AST 57 H ALT 87 H Alkaline Phosphatase 90 Total Protein 6.3 Albumin 3.9 Globulin 2.4 Albumin/Globulin Ratio 1.6 Triglycerides 985 H ABG Interpretation ABG results: 01/14/25 21:50 VBG pH 7.36 VBG pCO2 42 VBG pO2 58 VBG Base Excess -2 Quality Measures Quality Measures none Assessment & Plan Assessment Current Active Medications: Generic Name Dose Route Start Last Admin Trade Name Freq PRN Reason Stop Dose Admin Acetaminophen 650 mg 01/15/25 00:02 Acetaminophen 325 Mg Tablet PO 02/13/25 23:43 Q6H PRN pain 1-3 and Fever >100.4 Hydrocodone Bitart/Acetaminophen 1 tab 01/14/25 23:44 Hydrocodone/Apap 5/325 Tablet PO 01/19/25 23:43 Q4HR PRN PAIN SCALE 4-10(Mod-Sev Dextrose 25 ml 01/14/25 23:50 Dextrose 50%-Water Inj 50 Ml Syringe IV 02/13/25 23:49 Q15MIN PRN BG 50-70 responsive npo pt Dextrose 50 ml 01/14/25 23:50 Dextrose 50%-Water Inj 50 Ml Syringe IV 02/13/25 23:49 Q15MIN PRN BG <50 OR BG <70 & pt unresponsive Fenofibrate 72.5 mg 01/15/25 10:00 01/17/25 08:22 Fenofibrate 145 Mg Tablet (Non-Formulary) PO 02/14/25 09:59 72.5 mg QDAY DAVID Administration Glucagon 1 mg 01/14/25 23:50 Glucagon Inj 1 Mg Vial IM Q15MIN PRN BG <70, and no IV access Heparin Sodium (Porcine) 5,000 unit 01/15/25 06:00 01/17/25 05:08 Heparin Sod Inj 5000 Unit/Ml Vial SC 01/29/25 05:59 5,000 unit Q8HR DAVID Administration Insulin Glargine 30 unit 01/17/25 21:00 Insulin Glargine (Lantus) 5 Unit/0.05 Ml (Per 5 Units) SC 02/16/25 20:59 HS DAVID Insulin Human Lispro 0 unit 01/16/25 07:45 01/17/25 11:30 Insulin Lispro (Admelog) 1 Unit/0.01 Ml Unit SC 02/15/25 07:44 5 unit ACHS DAVID Administration Protocol Insulin Human Lispro 8 unit 01/17/25 07:45 01/17/25 11:31 Insulin Lispro (Admelog) 1 Unit/0.01 Ml Unit SC 02/16/25 07:44 8 unit ACHS DAVID Administration Losartan Potassium 25 mg 01/15/25 09:00 01/17/25 08:22 Losartan Potassium 25 Mg Tablet PO 02/14/25 08:59 25 mg QDAY DAVID Administration Ondansetron HCl 4 mg 01/14/25 23:44 Ondansetron Inj 2 Mg/Ml Inj 2 Ml IVP 02/13/25 23:43 Q6H PRN NAUSEA OR VOMITING Protocol Plan 44-year-old male with history of obesity on Wegovy was admitted to the hospital on 01/14/2025 for new onset diabetes mellitus 2 and mild DKA. #Polydipsia-resolved #Polyuria (resovled) 2/2 new onset type 2 DM #Hyperglycemia Metabolic acidosis most likely in setting of DKA. Patient came in after experiencing increased urination and thirst, n/v. Denies any previous diagnosis of diabetes. Stated that he was started on Wegovy and Ozempic by his PCP. Initially was on Ozempic which was not tolerable. Transition to Wegovy was also not tolerable. He was on metformin for short time due to higher blood sugar reads but was never worked up for diabetes. Blood sugars at home were in the 500s. Anion gap on admission 27, bicarb less than 10, beta hydroxybutyrate of 0.8. LA was 3.5 Patient received 10 units of regular insulin IV x 1 in the ED and 3 L of IV fluids A1c 9.1% -IV fluids -Insulin glargine 30 units at bedtime -scheduled lispro 8units ACHS -ISS every 4 hours with blood glucose checks every 4 hours -Hypoglycemia protocol ordered -Carb consistent low diet -diabetic education #Mixed hyperlipidemia #Transaminitis TAG 1250, cholesterol 233. No abdominal pain, lipase 70. Rule out pancreatitis, this is likely due to his obesity and diabetes. -fenofibrate 72.5mg daily -repeat TAGS in AM -holding statin treatment until LFTs improve -abdominal u/s negative for pancreatitis -follow up outpatient #Hypertension Denies being on any antihypertensive agents in the past. This should also be followed up outpatient for urine ablumin-cr ratio. Patient would benefit from MEMO inhibitor for renal protection if elevated ratio. -losartan 25 mg daily ? Follow-up outpatient #Class III obesity (BMI >40) Patient will be possibly undergoing bariatric surgery. ?Counseled patient on diet and exercise #Lactic acidosis-resolved #Intractable nausea and vomiting-resolved #High anion gap metabolic acidosis-resolved Disposition: telemetry for new onset DM2 and mild DKA. Diet: carb low, low fat GI prophylaxis: none DVT prophylaxis: heparin subcu Code: Full The patient's management plan was discussed with my attending physician Dr. Hawkins. Beth Wilson, PGY-1 Attending Provider Attestation/Addendum I attest that I was physically present for the evaluation, physical examination, lab and imaging review of the patient with the residents. I discussed the case with the residents and agree with the findings and plans of care as documented above. At bedside today, patient states he is feeling well and does not have any complaints.? Denies any abdominal pain, nausea or vomiting.? Has been able to tolerate diet, requesting food from outside.? Advised patient to continue low- fat diet given his hypertriglyceridemia, patient agrees.? Had glucose of 260 and triglycerides of 985 this morning.? Adjusted Lantus from 22 daily to 30 daily along with increase in lispro.? Continues to be on fenofibrate.? Liver function noted to be slightly worse compared to yesterday.? We will monitor his glucose, triglyceride and liver panel closely.? If liver function is stable or improving, we will consider restarting statin tomorrow.? If triglycerides and glucose are downtrending, we will plan for discharge tomorrow. Roldan Hawkins MD
[2025-01-17] MEDS: INSULIN GLARGINE (Lantus) 5 UNIT/0.05 ML (PER 5 UNITS) 30 UNIT SC (20:47)
[2025-01-18] VITALS: BP 139/87; PULSE 76; PULSE 90; RESP 19; TEMP 37.1; O2SAT 98
[2025-01-18 04:00] VITALS: BP 123/66; PULSE 74; PULSE 78; RESP 18; TEMP 36.5; O2SAT 97
[2025-01-18] MEDS: HEPARIN SOD INJ 5000 UNIT/ML VIAL SC (05:12)
[2025-01-18 05:47] VITALS: BMI 48.9
[2025-01-18 06:49] LABS: Basophils % (Auto) 1 % (0-2.5); Eosinophils # (Auto) 0.1 Thou/mm3 (0.0-0.5); Eosinophils % (Auto) 2 % (0-10); Hematocrit 40.7 % (41.0-53.0); Hemoglobin 14.9 g/dL (13.5-16.0); Immature Granulocytes % (Auto) 1 % (0-0); Immature Granulocytes Auto 0.06 Thou/mm3 (0.00-0.00); Lymphocytes # (Auto) 3.2 Thou/mm3 (1.0-4.8); Lymphocytes % (Auto) 50 % (10-50); Mean Corpuscular HGB Conc 36.6 g/dl (31.0-37.0); Mean Corpuscular Hemoglobin 31.2 pg (25.0-35.0); Mean Corpuscular Volume 85 fL (80-100); Monocytes # (Auto) 0.4 Thou/mm3 (0.0-0.8); Monocytes % (Auto) 6 % (0-12); Neutrophils # (Auto) 2.7 Thou/mm3 (1.8-7.7); Neutrophils % (Auto) 41 % (37-80); Nucleated Red Blood Cell % 0 /100 WBC (0); Platelet Count 222 Thou/mm3 (140-440); RDW Standard Deviation 36.1 fL (35.1-43.9); Red Blood Count 4.77 Miln/mm3 (4.50-5.90); White Blood Count 6.5 Thou/mm3 (3.8-10.6)
[2025-01-18 07:06] VITALS: PULSE 83; RESP 18; RESP 95
[2025-01-18 07:12] LABS: Alanine Aminotransferase 102 U/L (10-49); Albumin/Globulin Ratio 1.6 (1.2-2.2); Alkaline Phosphatase 88 U/L (46-116); Anion Gap 8 (7-16); Aspartate Amino Transferase 64 U/L (0-34); BUN/Creatinine Ratio 10 Ratio (12-20); Bilirubin,Total 0.6 mg/dL (0.3-1.2); Blood Urea Nitrogen 8 mg/dL (9-23); Calcium 8.8 mg/dL (8.3-10.6); Calcium (Corrected) 8.8 mg/dL (8.5-10.1); Carbon Dioxide 28.1 mMol/L (20.0-31.0); Chloride 103 mMol/L (98-107); Creatinine (Component) 0.8 mg/dL (0.6-1.3); Globulin 2.5 gm/dL (2.3-3.5); Glucose 170 mg/dL (74-106); Osmolality,Calculated 279 (275-295); Potassium 3.5 mMol/L (3.4-5.1); Sodium 139 mMol/L (136-145); Total Protein 6.5 gm/dL (5.7-8.2); Triglycerides 573 mg/dL (30-150); eGFR > 60 See Note
[2025-01-18 08:00] VITALS: BP 150/86; PULSE 62; PULSE 92; RESP 18; TEMP 36.3; O2SAT 94
[2025-01-18] MEDS: POTASSIUM CHLORIDE 20 mEq TABCR 40 MEQ PO (08:02)
[2025-01-18 08:03] VITALS: BP 150/86; PULSE 62
[2025-01-18] MEDS: LOSARTAN POTASSIUM 25 MG TABLET PO (08:03)
[2025-01-18] MEDS: INSULIN LISPRO (AdmeLOG) 1 UNIT/0.01 ML UNIT SC (08:03)
[2025-01-18] MEDS: FENOFIBRATE 145 MG TABLET (NON-FORMULARY) 72.5 MG PO (08:03)
[2025-01-18] MEDS: INSULIN LISPRO (AdmeLOG) 1 UNIT/0.01 ML UNIT 8 UNIT SC (08:04)
--- NOTE | 2025-01-18 14:50 | PD.RESDS ---
Planned Discharge Date 01/18/25 DS: Providers Provider Date of admission: 01/14/25 23:44 Primary care physician: Alma Machuca PA-C Admitting Provider: Wayne Shaikh MD Attending Provider on Admission: Roldan Hawkins MD Consults: 01/15/25 07:39 Referral Registered Dietitian Routine Comment: Attending Provider on DC: Roldan Hawkins MD Discharging Provider: Roldan Hawkins MD DS: Diagnosis Problem List Completed Was Problem List Reviewed/Reconciled?: Yes Hospital Course Hospital Course Hospital course: 44-year-old male with no relevant past medical history was admitted to the hospital on 01/14/2025 after come to the ED with chief complaints of nausea, vomiting, polyuria, polydipsia, and high blood glucose levels. Patient stated that his blood glucose was in the 500s at this time and that he had never had a diagnosis of diabetes before. He was on Wegovy and Ozempic by his PCP. Initially was on Ozempic which was not tolerable. Transition to Wegovy was also not tolerable. He was on metformin for short time due to higher blood sugar reads but was never worked up for diabetes. Anion gap on admission 27, bicarb less than 10, beta hydroxybutyrate of 0.8. LA was 3.5. A1c was 9.1%, severe hypertriglyceridemia 1250, cholesterol 233. No abdominal pain, lipase 70. Concern for pancreatitis ruled out after abdominal ultrasound negative for any findings. During hospitalization he was started on fenofibrate. Held atorvastatin due to mild transaminitis. Repeat triglycerides improved to 500s and blood sugar control improved to 180?190s. Patient will be discharged on 40 unit daily degludec and 10 units lispro 3 times daily with meals. He should continue losartan 25 mg daily for hypertension and microalbumin urine test as part of workup for diabetes. He received diabetic education . Patient expressed understanding and motivation. He is now in stable condition and ready for discharge. Discharge Recommendations: Continue taking losartan 25mg daily for hypertension, fenofibrate for treatment of high triglycerides. You will also needed to be started on atorvastatin outpatient. Follow up with your PCP in 2 weeks for repeat labs and check for liver enzymes. They should stop fenofibrate and start you on atorvastatin if labs are okay. See PCP for insulin adjustment. Continue diet and exercise for weight loss. Hospital Diagnoses: #Polydipsia-resolved #Polyuria (resovled) 2/2 new onset type 2 DM #Hyperglycemia #Mixed hyperlipidemia #Transaminitis #Hypertension #Class III obesity (BMI >40) #Lactic acidosis-resolved #Intractable nausea and vomiting-resolved #High anion gap metabolic acidosis-resolved The patient's management plan was discussed with my attending physician Dr. Hawkins. Beth Wilson MD, PGY-1 Time Spent with Patient Time attestation: Total time spent providing and/or coordinating discharge services: Time spent: Less than 30 minutes Exam Vital Signs Temp Pulse Resp BP Pulse Ox O2 Del Method 97.4 F 62 18 150/86 H 94 L Room Air 01/18/25 08:00 01/18/25 08:03 01/18/25 08:00 01/18/25 08:03 01/18/25 08:00 01/18/25 08:00 Narrative Exam General: Middle age male, No acute distress, cooperative, obese HEENT: NCAT, No JVD noted. Mucosa dry. Pupils are equal and reactive to light bilaterally Cardiovascular: Normal S1 and S2. Regular rate and rhythm. Respiratory: Lungs are clear to auscultation bilaterally. No wheezing or crackles heard. Abdomen: Soft, nontender, not distended Skin: Warm to touch, dry, no rashes noted Musculoskeletal: No gross injuries. Able to move all 4 extremities. No pitting edema Neuro: Alert and oriented x3. No focal neuro deficits. Psych: Normal affect and mood Discharge Plan Plan Patient Disposition: HOME (Self Care) Patient condition on transfer: Stable Prescriptions/Referrals Prescriptions/Med Rec: New (DME) pen needle, diabetic 29 gauge x 1/2 needle See Rx Instructions .Route Qty: 100 0RF Rx Instructions: As directed (DME) FreeStyle [place] 3 Sensor Device See Rx Instructions .Route Qty: 1 0RF Rx Instructions: As directed insulin degludec [Tresiba FlexTouch U-100] 100 unit/mL (3 mL) insulin pen 40 unit subcut QDAY 30 Days Qty: 12 0RF insulin lispro 100 unit/mL insulin pen 10 unit subcut TIDWM 30 Days Qty: 9 0RF fenofibrate nanocrystallized 145 mg Tablet 72.5 mg PO QDAY 14 Days Qty: 7 0RF losartan 25 mg Tablet 25 mg PO QDAY 30 Days Qty: 30 0RF Referrals: Alma Machuca PA-C [Primary Care Provider] - Patient/Caregiver Discharge Instructions Other Discharge Activity Instructions:: Continue taking losartan 25mg daily for hypertension, fenofibrate for treatment of high triglycerides. You will also needed to be started on atorvastatin outpatient. Follow up with your PCP in 2 weeks for repeat labs and check for liver enzymes. They should stop fenofibrate and start you on atorvastatin if labs are okay. See PCP for insulin adjustment. Continue diet and exercise for weight loss. Education Materials: CGM, Blood Sugar Monitoring and ..., Diabetes Carbs Fats Protein Print Language: Italian Stand Alone Forms: [facility] Award Info., Patient Portal Info Letter Discharge Order Discharge Orders: Discharge (Routine); Ordered 01/18/25 Ordered By: Beth Wilson Quality Discharge Quality Measures VTE prophylaxis Attestestation Attestation I attest that I was physically present for the evaluation, physical examination, lab and imaging review of the patient with the residents. I discussed the case with the residents and agree with the findings and plans of care as documented above. Roldan Hawkins MD
--- NOTE | 2025-01-23 14:17 | PC.CC ---
PA approved for [place] 3 Sensor through 01/23/26. Updated [facility].
== END 2025-01-18 11:23 | disposition home or self-care (01) | DRG 420 ==
LOC: SERX 22:55 → SERHOLD 01-15 00:07 → S2NX 01-15 04:08
PROVIDERS: Nurse Practitioner Family; Admitting Provider Student in an Organized Health Care Education/Training Program; Emergency Provider Emergency Medicine; PCP Physician Assistant Medical; Visit Provider Student in an Organized Health Care Education/Training Program
DX: E11.10 Type 2 diabetes mellitus with ketoacidosis without coma (principal); I10 Essential (primary) hypertension; F17.200 Nicotine dependence, unspecified, uncomplicated; E78.2 Mixed hyperlipidemia; Z68.41 Body mass index [BMI] 40.0-44.9, adult; E66.813 Obesity, class 3; R74.8 Abnormal levels of other serum enzymes; E88.819 Insulin resistance, unspecified; Z79.899 Other long term (current) drug therapy
CPT/HCPCS: 36415; 76705; 80048; 80053; 80061; 81001; 82010; 82803; 83036; 83605; 83690; 83735; 84443; 84478; 85025; 85610; 87811; 93005; 96361; 96372; 96374; 99285; J1644; J1815; J2405; J3475; J7030; J7120; A9270